=== PATIENT | male | born 2000 | race Caucasian/White ===

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

== ENCOUNTER 2025-01-31 09:10 | Emergency (ER) | payer SELFPAY ==
[2025-01-31 09:10] VITALS: BP 125/97; PULSE 72; RESP 18; TEMP 37; O2SAT 99; BMI 24.8
--- NOTE | 2025-01-31 10:05 | EKG12_ITS ---
Test Reason : CP Blood Pressure : */* mmHG Vent. Rate : 80 BPM Atrial Rate : 80 BPM P-R Int : 162 ms QRS Dur : 94 ms QT Int : 368 ms P-R-T Axes : 55 32 34 degrees QTcB Int : 424 ms Normal sinus rhythm with sinus arrhythmia Normal ECG Confirmed by JOSE G TELLEZ, BRAD ([id number]), pictures editor IAN JOHNSON ([id number]) on 02/05/2025 8:22:52 AM Referred By: Confirmed By: BRAD ARAIZA MD
--- NOTE | 2025-01-31 10:09 | RAD_ITS ---
PROCEDURE: CHEST PA AND LATERAL 01/31/2025 REASON FOR EXAM: CHEST PAIN TECHNIQUE: Procedure Code: RADCXR Modality: DX Procedure: CHEST PA AND LATERAL COMPARISON: None FINDINGS: Hardware: None Heart: The heart size is normal. Mediastinum: The mediastinal contour is unremarkable. Lungs: The lungs are clear. Bones: The bones are unremarkable. RAD/Chest PA and Lateral IMPRESSION: NEGATIVE CHEST Reading Location: [place] [id number]
--- NOTE | 2025-01-31 10:13 | EDS_ITS ---
HPI History of Present Illness Chief Complaint: Chest Pain Narrative Narrative: Patient is a 24-year-old male with no known significant past medical history who presents to the emergency department the chief complaint of chest discomfort. Patient states that he was recently started on Pepcid for acid reflux and notes that he has been taking this as prescribed. He states that the other day he ate a [employer] sub and this is when the chest discomfort started. He denies any early family history of cardiac issues and family member at bedside also confirms this. Denies any recent travels denies any history of blood clots [facility] Medical History (Updated 01/31/25 @ 11:[address] Patrick Woods DO) Chest pain Home Medications Medication Instructions Recorded Last Taken Type NK 12/31/17 Unknown History Allergy/AdvReac Type Severity Reaction Status Date / Time Sulfa (Sulfonamide Allergy Hives Verified 01/31/25 09:10 Antibiotics) Social History Smoking Status: Current every day smoker tobacco type: cigarettes ROS ROS ED ROS Narrative Constitutional: Denies any fevers, chills, headache Eyes: Denies change in vision double vision blurry vision Cardiovascular: Complains of chest discomfort as noted above denies palpitations Respiratory: Denies coughing wheezing shortness of breath Abdomen: Denies abdominal pain nausea vomit diarrhea : Denies urinary symptoms Neurological: Denies any numbness, weeks, tingling Musculoskeletal: Denies back pain Skin: Denies any rashes or lesions EXAM Physical Exam Narrative Exam Narrative: General: Patient was lying in bed rest comfortably did not appear to be in acute distress Head: Atraumatic, normocephalic Eyes: PERRL bilaterally, EOMI bilaterally, no conjunctival injection noted Neck: Soft, supple, trachea midline Cardiovascular: Regular rate and rhythm no murmurs gallops rubs are noted Respiratory: Clear to auscultation bilaterally Abdomen: Soft, nondistended, no tenderness palpation Extremities: +5/5 strength noted in the bilateral lower extremities Neurological: Patient commands knew that he was at [facility] 2024 Skin: Warm, dry, tact no rashes or lesions noted Const Vital Signs: 01/31/25 09:10 01/31/25 11:14 Temperature 98.6 F Temperature Source Oral Pulse Rate 72 66 Respiratory Rate 18 Blood Pressure 125/97 H 135/84 H Blood Pressure Mean 106 101 Pulse Ox 99 Oxygen Delivery Method Room Air MDM MDM MDM Narrative Medical decision making narrative: Patient is a 24-year-old male who presented to the emergency department the chief complaint of chest discomfort. On the differential diagnosis includes but limited to GERD, ACS although have low suspicion for this, musculoskeletal strain. Once workup is obtained reviewed he will be reevaluated. Patient chest x-ray reviewed by us and by radiology showed no acute cardiopulmonary processes. Patient EKG reviewed and showed sinus rhythm with a rate of 80 bpm the MI interval of 162. I discussed results with the patient he would like to go home at this point time. He is vies follow-up his doctor in outpatient setting return for worsening symptoms or concerns. He is agreeable to plan all question concerns answered is discharged home in stable condition Radiography Diagnostic Testing: Clinical Impression(s) from Imaging Studies Chest X-Ray 01/31/25 10:09 IMPRESSION: NEGATIVE CHEST Reading Location: [place] [address] Discharge Plan Triage Chief Complaint: Chest Pain ED Provider: Patrick Woods Dx/Rx/DC Orders Clinical Impression: Chest pain, History of gastroesophageal reflux (GERD) Prescriptions: No Action NK Primary Care Provider: Chris Turner Referrals: Chris Turner MD [Primary Care Provider, Pediatrics] Activity Restrictions/Additional Instructions: Your EKG was normal your chest x-ray was normal. Follow-up with your doctor in the outpatient setting return with worsening symptoms or other concerns. Take prescriptions as prescribed that you already on. Print Language: Japanese Disposition Disposition: Home, Self Care D/C Safety Score for UGIB Assessment Kael-Blatchford Bleeding Score (GBS): Stratifies upper GI bleeding patients who are "low-risk" and candidates for outpatient management. Sex: Male Hemoglobin, BUN, Recent Vital Signs: Pulse Rate 66 Blood Pressure 135/84 Total Risk Score: 1 Score Interpretation: Score of 0: A GBS of 0 is a “Low Risk” GI bleed, and is highly sensitive (99.6% in a 2007 retrospective study) for predicting which patients did not require any “medical intervention”: blood transfusion, endoscopy, or surgery. This was confirmed in a 2009 Lancet study where patients with a score of 0 were actually discharged and had no GI bleeding mortality at 6 month followup Score above 0: A GBS greater than zero suggests a “High Risk” GI bleed that is likely to require “medical intervention”: transfusion, endoscopy, or surgery. A higher GBS also correlated with a higher likelihood of needing intervention Scores >/= 6 are associated with >50% risk of needing intervention D/C Safety Score for LGIB Assessment Assessment Tool: Readmission and adverse event risk in patients with acute lower GI bleeding. Age, in years: <40 Sex: Male Hemoglobin and Recent Vital Signs: Pulse Rate 66 01/31/25 11:14 Blood Pressure 135/84 01/31/25 11:14 Probability of safe discharge: 99% Total Risk Score: 1 Score Interpretation: Probability Percentage of safe discharge (absence of rebleeding, blood transfusion, therapeutic intervention, 28 day readmission, or ) Score of 8 or below: Consider discharge, with appropriate precautions. Score of 9 or above: Discharge NOT recommended. Consider admission with further workup and resuscitation as necessary.
[2025-01-31 11:14] VITALS: BP 135/84; PULSE 66
== END 2025-01-31 11:32 | disposition home or self-care (01) ==
PROVIDERS: Emergency Provider Emergency Medicine; PCP Pediatrics; Visit Provider Emergency Medicine
DX: R07.9 Chest pain, unspecified (principal); K21.9 Gastro-esophageal reflux disease without esophagitis; F17.210 Nicotine dependence, cigarettes, uncomplicated
CPT/HCPCS: 71046; 93005; 99282